=== PATIENT | male | born 1940 | race Caucasian/White ===

== ENCOUNTER → 2018-05-26 10:55 | Outpatient (CLI) | payer MEDICARE, BC, SELFPAY ==
[2018-05-26 11:12] LABS: Add Manual Diff / Slide Review NO; Basophils Percent Auto 0.3 % (0-2); Eosinophils Percent Auto 2.1 % (2-4); Hematocrit 40.4 % (41-53); Hemoglobin 13.6 g/dL (13.5-17.5); Lymphocytes Percent Auto 23.3 % (25-40); Mean Corpuscular HGB Conc 33.7 % (30-36); Mean Corpuscular Hemoglobin 30.9 PG (26-34); Mean Corpuscular Volume 91.8 fL (80-100); Neutrophils Absolute Auto 3400 /uL (3000-5900); Neutrophils Percent Auto 66.3 % (50-75); Platelet Count 228 X10^3/uL (150-400); Red Cell Distribution Width 14.1 % (11.6-14.8); White Blood Cell Count 5.2 X10^3/uL (4.5-11.0)
[2018-05-26 11:47] LABS: Alanine Aminotransferase 29 IU/L (21-72); Albumin 4.1 g/dL (3.5-5.0); Albumin Globulin Ratio 1.4 (1.0-2.8); Alkaline Phosphatase 93 U/L (38-126); Aspartate Aminotransferase 31 IU/L (17-59); BUN Creatinine Ratio 17.8 (6-22); Bilirubin Total 0.5 mg/dL (0.2-1.3); Blood Urea Nitrogen 16 mg/dL (9-20); Calcium 9.2 mg/dL (8.4-10.2); Carbon Dioxide 29 mmol/L (22-32); Chloride 104 mmol/L (98-107); Cholesterol 188 mg/dL (140-199); Estimated Glomerular Filt Rate > 60.0 mL/min (>60); Glucose 91 mg/dL (80-110); HDL Cholesterol 63 mg/dL (40-60); HEMOLYSIS < 15 (0-50); LDL Cholesterol Calculated 107 mg/dL (<100); Potassium 4.7 mmol/L (3.4-5.1); Sodium 139 mmol/L (137-145); Total Protein 7.1 g/dL (6.3-8.2); Triglycerides 88 mg/dL (35-150)
[2018-05-26 12:16] LABS: Prostate Specific Antigen Scrn 0.824 ng/mL (0.1-4.0)
[2018-05-26 12:26] LABS: TSH w/ Reflex to FT4 1.93 uIU/mL (0.47-4.68)
== END ==
PROVIDERS: PCP Family Medicine; Visit Provider Family Medicine
DX: E78.5 Hyperlipidemia, unspecified (principal)
CPT/HCPCS: 36415; 80053; 80061; 84443; 85025; G0103

== ENCOUNTER → 2018-10-06 14:13 | Outpatient (CLI) | payer MEDICARE, BC, SELFPAY ==
--- NOTE | 2018-10-06 14:16 | DI.RAD.S_ITS ---
PROCEDURE: XR FOOT LT MIN 3V INDICATIONS: heal pain TECHNIQUE: 3 views of the foot were acquired. COMPARISON: None. FINDINGS: Bones: No fractures or dislocations. No suspicious bony lesions. Plantar calcaneal spurring. Chronic appearing corticated ossicle at the tip of lateral malleolus. Moderate first MTP joint degeneration. Soft tissues: No tibiotalar joint effusion. Achilles tendon appears normal. IMPRESSION: Plantar calcaneal spurring. Moderate first MTP joint degeneration. Chronic appearing ossicle at the tip of the lateral malleolus. This could be further assessed with dedicated ankle radiographs as clinically required. Dictated by: Leonard Condon M.D. on 10/06/2018 at 15:48 Approved by: Leonard Condon M.D. on 10/06/2018 at 15:51
== END ==
PROVIDERS: PCP Family Medicine; Visit Provider Family Medicine
DX: M79.672 Pain in left foot (principal); M77.32 Calcaneal spur, left foot; M19.072 Primary osteoarthritis, left ankle and foot
CPT/HCPCS: 73630

== ENCOUNTER → 2019-12-01 10:30 | Outpatient (CLI) | payer MEDICARE, BC, SELFPAY ==
[2019-12-01 11:44] LABS: Add Manual Diff / Slide Review NO; Basophils Absolute Auto 0 /uL (0-100); Basophils Percent Auto 0.2 % (0-2); Eosinophils Absolute Auto 400 /uL (0-450); Eosinophils Percent Auto 7.2 % (2-4); Hematocrit 42.2 % (41-53); Hemoglobin 14.4 g/dL (13.5-17.5); Lymphocytes Absolute Auto 1300 /uL (1100-4500); Lymphocytes Percent Auto 22.4 % (25-40); Mean Corpuscular Hemoglobin 31.6 PG (26-34); Mean Corpuscular Volume 92.8 fL (80-100); Monocytes Absolute Auto 400 /uL (0-900); Monocytes Percent Auto 7.2 % (3-14); Neutrophils Absolute Auto 3500 /uL (1500-7000); Platelet Count 252 X10^3/uL (150-400); Red Blood Cell Count 4.55 X10^6/uL (4.5-5.9); Red Cell Distribution Width 13.9 % (11.6-14.8); White Blood Cell Count 5.6 X10^3/uL (4.5-11.0)
[2019-12-01 12:33] LABS: Alanine Aminotransferase 22 IU/L (<50); Albumin 4.5 g/dL (3.5-5.0); Albumin Globulin Ratio 1.4 (1.0-2.8); Alkaline Phosphatase 106 U/L (38-126); Aspartate Aminotransferase 31 IU/L (17-59); BUN Creatinine Ratio 21.1 (6-22); Bilirubin Total 0.6 mg/dL (0.2-1.3); Blood Urea Nitrogen 19 mg/dL (9-20); Calcium 9.5 mg/dL (8.4-10.2); Carbon Dioxide 26 mmol/L (22-32); Chloride 102 mmol/L (98-107); Cholesterol 214 mg/dL (140-199); Estimated Glomerular Filt Rate > 60.0 mL/min (>60); Globulin 3.3 g/dL (1.7-4.1); Glucose 84 mg/dL (80-110); HDL Cholesterol 72 mg/dL (40-60); HEMOLYSIS 19 (0-50); LDL Cholesterol Calculated 123 mg/dL (<100); Potassium 4.8 mmol/L (3.4-5.1); Sodium 138 mmol/L (137-145); Total Protein 7.8 g/dL (6.3-8.2); Triglycerides 94 mg/dL (35-150)
[2019-12-01 13:03] LABS: Prostate Specific Antigen Scrn 0.914 ng/mL (0.1-4.0)
== END ==
PROVIDERS: Family Provider Family Medicine; PCP Family Medicine; Referring Provider Family Medicine; Visit Provider Family Medicine
DX: E78.5 Hyperlipidemia, unspecified (principal); F42.9 Obsessive-compulsive disorder, unspecified; N40.1 Benign prostatic hyperplasia with lower urinary tract symptoms; E78.9 Disorder of lipoprotein metabolism, unspecified
CPT/HCPCS: 80053; 80061; 84153; 85025; G0103

== ENCOUNTER → 2021-12-11 11:08 | Outpatient (CLI) | payer MEDICARE, BC, SELFPAY ==
[2021-12-11 12:04] LABS: Add Manual Diff / Slide Review NO; Basophils Absolute Auto 0 /uL (0-100); Basophils Percent Auto 0.3 % (0-2); Eosinophils Absolute Auto 300 /uL (0-450); Eosinophils Percent Auto 5.9 % (2-4); Hematocrit 39.7 % (41-53); Hemoglobin 13.4 g/dL (13.5-17.5); Lymphocytes Absolute Auto 1300 /uL (1100-4500); Mean Corpuscular HGB Conc 33.7 % (30-36); Mean Corpuscular Hemoglobin 30.8 PG (26-34); Mean Corpuscular Volume 91.5 fL (80-100); Monocytes Absolute Auto 500 /uL (0-900); Monocytes Percent Auto 8.5 % (3-14); Neutrophils Absolute Auto 3600 /uL (1500-7000); Neutrophils Percent Auto 62.3 % (50-75); Platelet Count 236 X10^3/uL (150-400); Red Blood Cell Count 4.34 X10^6/uL (4.5-5.9); Red Cell Distribution Width 13.9 % (11.6-14.8); White Blood Cell Count 5.8 X10^3/uL (4.5-11.0)
[2021-12-11 13:40] LABS: Alanine Aminotransferase 22 IU/L (<50); Albumin 4.2 g/dL (3.5-5.0); Albumin Globulin Ratio 1.2 (1.0-2.8); Alkaline Phosphatase 93 U/L (38-126); Aspartate Aminotransferase 31 IU/L (17-59); BUN Creatinine Ratio 13.1 (6-22); Bilirubin Total 0.5 mg/dL (0.2-1.3); Blood Urea Nitrogen 13 mg/dL (9-20); Calcium 9.4 mg/dL (8.4-10.2); Carbon Dioxide 30 mmol/L (22-32); Chloride 104 mmol/L (98-107); Cholesterol 191 mg/dL (140-199); Estimated Glomerular Filt Rate > 60.0 mL/min (>60); Globulin 3.4 g/dL (1.7-4.1); Glucose 90 mg/dL (80-110); HDL Cholesterol 73 mg/dL (40-60); HEMOLYSIS < 15 (0-50); LDL Cholesterol Calculated 100 mg/dL (<100); Potassium 4.7 mmol/L (3.4-5.1); Sodium 137 mmol/L (137-145); Total Protein 7.6 g/dL (6.3-8.2); Triglycerides 92 mg/dL (35-150)
[2021-12-11 14:06] LABS: TSH w/ Reflex to FT4 2.02 uIU/mL (0.47-4.68)
[2021-12-11 14:07] LABS: Prostate Specific Antigen Scrn 0.911 ng/mL (0.1-4.0)
== END ==
PROVIDERS: Family Provider Family Medicine; PCP Family Medicine; Referring Provider Family Medicine; Visit Provider Family Medicine
DX: E78.5 Hyperlipidemia, unspecified (principal); Z12.5 Encounter for screening for malignant neoplasm of prostate; F42.9 Obsessive-compulsive disorder, unspecified; N40.1 Benign prostatic hyperplasia with lower urinary tract symptoms
CPT/HCPCS: 36415; 80053; 80061; 84443; 85025; G0103

== ENCOUNTER → 2022-06-27 10:38 | Outpatient (CLI) | payer MEDICARE, BC, SELFPAY ==
--- NOTE | 2022-06-27 10:41 | DI.RAD.S_ITS ---
PROCEDURE: XR CHEST 2V INDICATIONS: Dyspnea on exertion; chest pain TECHNIQUE: 2 views of the chest were acquired. COMPARISON: None. FINDINGS: Surgical changes and devices: None. Lungs and pleura: Chronic emphysematous changes are noted. No focal infiltrate. No pleural effusions or pneumothorax. Mediastinum: Mediastinal contours are normal. Heart size is normal. Bones and chest wall: Old fractures involving left posterior lateral 4th through 7th ribs are seen. No suspicious bony abnormalities. Soft tissues appear unremarkable. IMPRESSION: COPD. No acute cardiopulmonary pathology. Old healed left posterior lateral rib fractures as above. Dictated by: Endy Hinton M.D. on 06/27/2022 at 12:35 Approved by: Endy Hinton M.D. on 06/27/2022 at 12:38
[2022-06-27 12:44] LABS: Add Manual Diff / Slide Review NO; Basophils Absolute Auto 0 /uL (0-100); Basophils Percent Auto 0.3 % (0-2); Eosinophils Absolute Auto 200 /uL (0-450); Eosinophils Percent Auto 3.3 % (2-4); Hematocrit 38.1 % (41-53); Hemoglobin 12.9 g/dL (13.5-17.5); Lymphocytes Absolute Auto 1400 /uL (1100-4500); Lymphocytes Percent Auto 24.4 % (25-40); Mean Corpuscular HGB Conc 33.8 % (30-36); Mean Corpuscular Hemoglobin 31.1 PG (26-34); Mean Corpuscular Volume 92.1 fL (80-100); Monocytes Absolute Auto 500 /uL (0-900); Monocytes Percent Auto 8.3 % (3-14); Neutrophils Absolute Auto 3600 /uL (1500-7000); Neutrophils Percent Auto 63.7 % (50-75); Platelet Count 215 X10^3/uL (150-400); Red Blood Cell Count 4.14 X10^6/uL (4.5-5.9); Red Cell Distribution Width 14.1 % (11.6-14.8); White Blood Cell Count 5.7 X10^3/uL (4.5-11.0)
[2022-06-27 13:32] LABS: HEMOLYSIS < 15 (0-50); Iron 84 ug/dL (49-181)
[2022-06-27 13:36] LABS: Alanine Aminotransferase 19 IU/L (<50); Albumin 3.8 g/dL (3.5-5.0); Albumin Globulin Ratio 1.2 (1.0-2.8); Alkaline Phosphatase 97 U/L (38-126); Aspartate Aminotransferase 27 IU/L (17-59); BUN Creatinine Ratio 20.4 (6-22); Bilirubin Total 0.4 mg/dL (0.2-1.3); Blood Urea Nitrogen 19 mg/dL (9-20); Calcium 8.8 mg/dL (8.4-10.2); Carbon Dioxide 28 mmol/L (22-32); Chloride 104 mmol/L (98-107); Estimated Glomerular Filt Rate > 60 mL/min (>60); Globulin 3.1 g/dL (1.7-4.1); Glucose 74 mg/dL (80-110); HEMOLYSIS < 15 (0-50); Sodium 137 mmol/L (137-145); Total Protein 6.9 g/dL (6.3-8.2)
[2022-06-27 13:44] LABS: Percent Iron Saturation 37 % (20-50); Total Iron Binding Capacity 229 ug/dL (261-462); Transferrin 175 mg/dL (206-381)
[2022-06-27 14:09] LABS: Ferritin 77 ng/mL (18-464)
== END ==
PROVIDERS: Family Provider Family Medicine; PCP Family Medicine; Referring Provider Physician Assistant; Visit Provider Physician Assistant
DX: R07.9 Chest pain, unspecified (principal); R06.09 Other forms of dyspnea; J44.9 Chronic obstructive pulmonary disease, unspecified; D64.9 Anemia, unspecified
CPT/HCPCS: 36415; 71046; 80053; 82728; 83540; 83550; 85025; 93005

== ENCOUNTER 2023-02-27 08:30 | Outpatient (RCR) | payer MEDICARE, BC, SELFPAY | END 2023-02-27 10:30 | LOC: CAR 08:30 | PROVIDERS: Family Provider Family Medicine; PCP Family Medicine; Referring Provider Surgery; Visit Provider Surgery | DX: Z95.1 Presence of aortocoronary bypass graft (principal) | CPT/HCPCS: 93798 ==

== ENCOUNTER 2023-05-30 08:30 | Outpatient (RCR) | payer MEDICARE, BC, SELFPAY | END 2023-05-30 10:30 | LOC: PUL 08:30 | PROVIDERS: Family Provider Family Medicine; PCP Family Medicine; Referring Provider Internal Medicine; Visit Provider Internal Medicine | DX: J84.115 Respiratory bronchiolitis interstitial lung disease (principal) | CPT/HCPCS: G0237; G0238 ==

== ENCOUNTER → 2023-09-03 08:32 | Outpatient (CLI) | payer MEDICARE, BC, SELFPAY ==
[2023-09-03 11:00] LABS: Add Manual Diff / Slide Review NO; Basophils Absolute Auto 0 /uL (0-100); Basophils Percent Auto 0.1 % (0-2); Eosinophils Absolute Auto 0 /uL (0-450); Eosinophils Percent Auto 0.3 % (2-4); Hematocrit 38.2 % (41-53); Lymphocytes Absolute Auto 700 /uL (1100-4500); Lymphocytes Percent Auto 12.3 % (25-40); Mean Corpuscular HGB Conc 34.1 % (30-36); Mean Corpuscular Hemoglobin 31.2 PG (26-34); Mean Corpuscular Volume 91.3 fL (80-100); Monocytes Absolute Auto 500 /uL (0-900); Monocytes Percent Auto 8.6 % (3-14); Neutrophils Absolute Auto 4800 /uL (1500-7000); Neutrophils Percent Auto 78.7 % (50-75); Platelet Count 181 X10^3/uL (150-400); Red Blood Cell Count 4.19 X10^6/uL (4.5-5.9); Red Cell Distribution Width 13.8 % (11.6-14.8); White Blood Cell Count 6.1 X10^3/uL (4.5-11.0)
[2023-09-03 11:16] LABS: Alanine Aminotransferase 58 IU/L (<50); Albumin 4.1 g/dL (3.5-5.0); Albumin Globulin Ratio 1.5 (1.0-2.8); Alkaline Phosphatase 105 U/L (38-126); Aspartate Aminotransferase 55 IU/L (17-59); BUN Creatinine Ratio 18.6 (6-22); Bilirubin Total 0.7 mg/dL (0.2-1.3); Blood Urea Nitrogen 18 mg/dL (9-20); Calcium 9.8 mg/dL (8.4-10.2); Carbon Dioxide 28 mmol/L (22-32); Chloride 101 mmol/L (98-107); Cholesterol 147 mg/dL (140-199); Estimated Glomerular Filt Rate > 60 mL/min (>60); Globulin 2.7 g/dL (1.7-4.1); Glucose 95 mg/dL (80-110); HDL Cholesterol 101 mg/dL (40-60); HEMOLYSIS < 15 (0-50); LDL Cholesterol Calculated 35 mg/dL (<100); Potassium 4.5 mmol/L (3.4-5.1); Sodium 136 mmol/L (137-145); Total Protein 6.8 g/dL (6.3-8.2); Triglycerides 56 mg/dL (35-150)
[2023-09-03 11:36] LABS: TSH w/ Reflex to FT4 1.55 uIU/mL (0.47-4.68)
== END ==
PROVIDERS: Family Provider Family Medicine; PCP Family Medicine; Referring Provider Family Medicine; Visit Provider Family Medicine
DX: D64.9 Anemia, unspecified (principal); E78.5 Hyperlipidemia, unspecified; I48.0 Paroxysmal atrial fibrillation
CPT/HCPCS: 36415; 80053; 80061; 84443; 85025

== ENCOUNTER → 2024-01-29 13:59 | Outpatient (CLI) | payer MEDICARE, BC, SELFPAY ==
--- NOTE | 2024-01-29 14:02 | DI.RAD.S_ITS ---
PROCEDURE: XR LUMBAR SPINE MIN 4V INDICATIONS: Fell about 2 weeks ago; low back pain TECHNIQUE: 5 views of the lumbar spine were acquired, including bilateral oblique views. COMPARISON: None. FINDINGS: Bones: 5 nonrib-bearing vertebrae are present. There is normal bony alignment. Wedge-shaped L2 compression fracture. Hypertrophic facet joints noted in the lower lumbar spine No suspicious bony lesions. Convex right thoracolumbar scoliosis present. Soft tissues: Overlying bowel gas pattern is normal. No suspicious soft tissue calcifications. Oblique images: No pars defects. IMPRESSION: L2 compression fracture, uncertain age. Given recent history of trauma, consider follow-up MRI for evaluation of vertebroplasty Approved by: Joselo Manzano M.D. on 01/29/2024 at 19:43
== END ==
PROVIDERS: Family Provider Family Medicine; PCP Family Medicine; Referring Provider Physician Assistant; Visit Provider Physician Assistant
DX: M54.50 Low back pain, unspecified (principal); S32.028A Other fracture of second lumbar vertebra, initial encounter for closed fracture; W19.XXXA Unspecified fall, initial encounter
CPT/HCPCS: 72110

== ENCOUNTER → 2024-02-18 12:21 | Outpatient (CLI) | payer MEDICARE, BC, SELFPAY ==
--- NOTE | 2024-02-18 12:23 | DI.RAD.S_ITS ---
PROCEDURE: XR DEXA AXIAL SKELETON INDICATIONS: compression fracture COMPARISON: None. FINDINGS: Lumbar Spine: L1, L2, L4. Bone mineral density 0.973 g/cm2, T score -0.6. Left Hip: Bone mineral density 0.798 g/cm2, T score -1.2. Left Femoral Neck: Bone mineral density 0.656 g/cm2, T score -1.7. Right Hip: Bone mineral density 0.806 g/cm2, T score -1.1. Right Femoral Neck: Bone mineral density 0.651 g/cm2, T score -1.8. Fracture Risk Calculation (when applicable): Not provided due to prior hip or vertebral body fracture. (T score greater or equal to -1.0 to: NORMAL) (T score from -1.1 to -2.4: OSTEOPENIA) (T score less than or equal to -2.5: OSTEOPOROSIS) IMPRESSION: 1. Osteopenia Dictated by: Vaughn Douglas M.D. on 02/18/2024 at 20:31 Approved by: Vaughn Douglas M.D. on 02/18/2024 at 20:32
== END ==
PROVIDERS: Family Provider Family Medicine; PCP Family Medicine; Referring Provider Family Medicine; Visit Provider Family Medicine
DX: S32.000A Wedge compression fracture of unspecified lumbar vertebra, initial encounter for closed fracture (principal); M85.89 Other specified disorders of bone density and structure, multiple sites
CPT/HCPCS: 77080

== ENCOUNTER → 2024-07-08 16:12 | Outpatient (CLI) | payer MEDICARE, BC, SELFPAY ==
--- NOTE | 2024-07-08 16:13 | DI.MRI.S_ITS ---
PROCEDURE: MR LUMBAR SPINE WO CON INDICATIONS: B sciatica pain TECHNIQUE: Noncontrast sagittal T1 spin echo and T2 fast echo, sagittal STIR, and T2 fast spin echo through the lumbar spine. In cases with scoliosis, additional coronal T2 fast spin echo may be performed. COMPARISON: CR, XR LUMBAR SPINE MIN 4V, 01/29/2024, 14:02. FINDINGS: Image quality: Excellent. Alignment and Curvature: There is normal bony alignment. Bone Marrow: Marrow is of normal overall signal. Approximate 58% compression deformity of the superior endplate of L2 with increased T2 signal. It is noted that compression deformity L2 appears slightly more prominent when compared to 01/29/2024. No retropulsion. In addition, increased signal at the superior endplate of T11 with approximate 25% compression deformity is present. Spinal Cord: Conus medullaris terminates at the L1 level. Visualized cord demonstrates normal signal and size. Paraspinous Soft Tissues: No paravertebral masses. Discs: Multilevel moderate disc desiccation. There is increased T2 signal through the foramina at T10. This is only visualized on sagittal view given field of view on axial images. T12-L1: Minimal disc bulge without spinal stenosis or gross foraminal narrowing. L1-L2: Mild disc bulge without spinal stenosis or foraminal narrowing. Facet and ligamentum flavum hypertrophy are present. L2-L3: Mild disc bulge without spinal stenosis. Minimal left foraminal narrowing. Mild facet hypertrophy. L3-L4: Mild disc bulge without spinal stenosis. Mild left foraminal narrowing with facet and ligamentum flavum hypertrophy. L4-L5: Mild disc bulge with severe spinal stenosis and canal compression. No foraminal narrowing. Prominent facet and ligamentum flavum hypertrophy. L5-S1: Mild disc bulge with minimal spinal stenosis. Mild left foraminal narrowing with facet and ligamentum flavum hypertrophy. IMPRESSION: T2 compression deformity appearing slightly more prominent when compared to prior exam with signal changes suggestive acute/subacute on chronic fracture. Mild increased signal with endplate deformity at T11 suggestive of subacute injury. Severe spinal stenosis with canal compression at L4-5 secondary to facet/ligamentum flavum arthropathy. Limited visualization of increased T2 signal within the foramina at the level of T10 possibly schwannoma or nerve root sleeve cyst. Dictated by: Ana Rosa Hernadez M.D. on 07/09/2024 at 11:48 Approved by: Ana Rosa Hernadez M.D. on 07/09/2024 at 11:55
== END ==
PROVIDERS: Family Provider Family Medicine; PCP Family Medicine; Referring Provider Family Medicine; Visit Provider Family Medicine
DX: M54.41 Lumbago with sciatica, right side (principal); M47.816 Spondylosis without myelopathy or radiculopathy, lumbar region; M48.061 Spinal stenosis, lumbar region without neurogenic claudication; M43.8X4 Other specified deforming dorsopathies, thoracic region; S32.000A Wedge compression fracture of unspecified lumbar vertebra, initial encounter for closed fracture; G25.81 Restless legs syndrome
CPT/HCPCS: 72148

== ENCOUNTER → 2024-09-15 14:10 | Outpatient (CLI) | payer MEDICARE, BC, SELFPAY ==
--- NOTE | 2024-09-15 14:12 | DI.US.S_ITS ---
PROCEDURE: US PERIPH VENOUS LOW EXTREM RT INDICATIONS: RLE edema TECHNIQUE: Real-time imaging, as well as color and pulse Doppler interrogation, were performed of the lower extremity deep veins from the inguinal ligament to the popliteal fossa, with documentation of the visualized calf veins. COMPARISON: None. FINDINGS: The common femoral, femoral, popliteal, and the visualized calf veins are normally compressible, and free of intraluminal thrombus. Color and pulse Doppler demonstrate normal phasic intraluminal flow. There is normal augmentation response to distal compression maneuver. IMPRESSION: No findings of lower extremity deep venous thrombosis. Dictated by: Vaughn Douglas M.D. on 09/15/2024 at 18:58 Approved by: Vaughn Douglas M.D. on 09/15/2024 at 19:00
== END ==
PROVIDERS: Family Provider Family Medicine; PCP Family Medicine; Referring Provider Family Medicine; Visit Provider Family Medicine
DX: M79.606 Pain in leg, unspecified (principal); M79.89 Other specified soft tissue disorders
CPT/HCPCS: 93971

== ENCOUNTER 2025-05-28 11:49 | Day surgery (SDC) | payer MEDICARE, BC, SELFPAY ==
[2025-05-25 09:21] VITALS: BMI 20.5
[2025-05-28] VITALS (12 sets, daily range): BP systolic 116–163; BP diastolic 58–80; PULSE 53–77; RESP 16–26; TEMP 36.1–37; O2SAT 92–100; BMI 20.5; BMI 20.7
[2025-05-28] MEDS: LACTATED RINGERS 1,000 ML 42 ML IV (12:37)
[2025-05-28] MEDS: ACETAMINOPHEN 325 MG TABLET 975 MG PO (12:37)
--- NOTE | 2025-05-28 13:33 | PM.PREOP ---
Pre-operative Note Interval Note History & Physical reviewed/Exam performed by Physician: Yes Changes to H&P: No ASA Class (for procedural sedation): III
[2025-05-28] MEDS: CEFAZOLIN 2 GM/100 ML PREMIX 100 ML IV (13:57)
--- NOTE | 2025-05-28 14:09 | SUR.OPER ---
Supine on padded OR bed, head on pillow, arms secured on padded arm boards at <90 degrees abduction, legs uncrossed, safety belt at thigh.
[2025-05-28] MEDS: BUPIVACAINE 0.25% W/ EPI 30 ML VIAL 60 ML INJ (14:16)
--- NOTE | 2025-05-28 14:43 | P.OP_ITS ---
Operative Date/Time/Diagnoses Date of procedure: 05/28/25 Time of procedure: 14:43 Pre-op diagnosis: RIH Post-op diagnosis: same Procedure & Clinicians Procedure: Open RIHR with mesh, Lichenstein technique Same procedure(s) as scheduled: Yes Indications: 84yo M, symptomatic RIH Surgeon: Jermaine Pettit Medical Review Coordinator: Scott Dotson Anesthesia Type: MAC +/- Operative Notes Findings: Indirect inguinal hernia sac, large lipoma of the cord; direct floor strong Closure Type: primary Specimen(s): none sent Prosthetic devices, grafts, tissues, transplants, or devices: mesh, 2x4 marlex customized Applied: other (mesh) Estimated Blood Loss (mL): 5 Blood products transfused: none Procedure in detail: After informed consent, the patient was taken to the operating room and placed in the supine position with pressure points well padded. After satisfactory sedation, the right inguinal region was shaved, prepped and draped in the usual sterile manner. Surgical time-out was performed with all team members in agreement. The correct side, the right side, was marked in the preoperative holding area with the patient in agreement. We used a total of 60 cc of 0.25% Marcaine with epinephrine. The skin and subcutaneous tissues were injected with the local anesthetic and a linear incision was made with a #15 blade knife continuing from the suprapubic area to inferomedial to the anterior superior iliac spine. We continued this dissection with cautery through the Kevan's fascia until we reached the external abdominal oblique. A #15 blade knife was used to make a small incision in the external abdominal oblique and the edges were grasped with hemostats and this incision was continued through the external inguinal ring taking great care to avoid injury to the ilioinguinal nerve which was identified and preserved. [place] was used for retraction. The surgical field was oozing typical of antiplatelet agents. Hemostasis was achieved with cautery. We mobilized the cord off the pubic bone medially and encircled it with a Sahra drain. The cord structures were skeletonized by opening the cremasteric muscle fibers. We encountered a large cord lipoma which was mobilized proximally to the internal inguinal ring. An indirect inguinal hernia sac was similarly identified and mobilized proximally to the internal inguinal ring. Both structures were controlled using a 2-0 silk suture ligature at the base and excised. The indirect inguinal sac was twisted to ensure there was no intraperitoneal contents prior to suture ligature. The direct floor was noted to be strong and intact. I fashioned a 2 x 4 inch piece of Marlex mesh with curved Chaves scissors. This was secured to the pubic bone medially to the shelving edge of the ilioinguinal ligament and the iliopubic tract laterally and to the conjoined tendon medially taking great care to avoid injury to the nerves. The mesh was split and the tails were secured together with suture laterally. Rather than running 3-0 Prolene in the traditional manner, I elected to place interrupted 3-0 Vicryl suture to reduce the chance for chronic pain since he had such a strong direct floor. With this, the mesh was noted to lay flat with no wrinkling of the mesh. The [place] was removed and the inguinal cord was returned to the canal. The external abdominal oblique aponeurosis was closed over this with 3-0 Vicryl running taking care to avoid injury to the nerve. Kevan's fascia was closed using interrupted 3-0 Vicryl suture. The skin incision was closed using 4-0 Monocryl in a subcuticular manner. Dermabond glue was applied as a final dressing. The estimated blood loss was minimal. The instrument sponge and needle counts were all correct x2. The patient tolerated the procedure well and was transported to the recovery area in stable condition Complications: none Post-operative Condition: stable Disposition: PACU Plan for aftercare: PACU then home
--- NOTE | 2025-05-28 15:54 | SUR.PREOP ---
Pt voided into toilet after arriving to phase 2; unable to measure, however water in bowl was very yellow in color and pt verbalized a good amount of urine passed
--- NOTE | 2025-05-28 16:15 | SUR.PHASEII ---
Patient unable to stand when attempting to ambulate to bathroom. His right leg can bear no weight and is weak. He has decreased sensation throughout leg. RN notes patient got 60ml 0.25% Bupivacaine to the operative site. All other neurological symptoms normal in the rest of his body.He is AOx4. RN called Dr. Pettit to discuss. Patient and spouse not comfortable trying to go home without being able to stand and walk. Dr. Pettit admitting patient to acute care. Patient and spouse in agreement.
[2025-05-28] MEDS: ATORVASTATIN 20 MG TABLET 40 MG PO (21:47)
[2025-05-29 03:00] VITALS: BP 134/71; PULSE 73; RESP 20; TEMP 36.3; O2SAT 91
[2025-05-29 03:36] VITALS: O2SAT 93
[2025-05-29 07:35] VITALS: O2SAT 98
[2025-05-29 07:39] VITALS: BP 175/84; PULSE 77; RESP 16; TEMP 36.6; O2SAT 99
[2025-05-29 08:15] VITALS: BP 175/85; PULSE 77
[2025-05-29] MEDS: DOCUSATE 100 MG CAPSULE PO (08:15)
[2025-05-29] MEDS: METOPROLOL ER 25 MG TABLET PO (08:15)
[2025-05-29] MEDS: SERTRALINE 50 MG TABLET 100 MG PO (08:16)
[2025-05-29] MEDS: TAMSULOSIN 0.4 MG CAPSULE 0.8 MG PO (08:16)
[2025-05-29] MEDS: ASPIRIN 81 MG CHEW TAB PO (08:16)
--- NOTE | 2025-05-29 08:30 | CM.DANOTE ---
Initial DCP Assessment Note Pt is a 84 yo male, resident of [place], now POD#1 from hernia repair by general surgeon. PCP: Placido Maddox Payer: HELEN/DONA Esquivel Reviewed chart, pt lives independently with spouse and plans to return home w/sp to assist throughout recovery. DC order from surgeon has already been initiated this morning. No barriers identified at this time to patient's safe discharge home w/family to assist; close outpatient f/u recommended. Social work team will plan to follow clinical course closely in case any DC needs or concerns arise. SYLVAIN Escalera Discharge Planning/Care Management CM Discharge Assessment Start: 05/28/25 16:45 Freq: Status: Active Protocol: Document 05/29/25 08:23 DEANGELO (Rec: 05/29/25 08:29 DEANGELO [id number]) Discharge Planning Assessment Assigned Discharge SYLVAIN Mallory Study Assistant DPOA/Assigned Lillian Michelle, spouse Designee Name Contact Information [phone] Advance Directives? Yes Advance Directives Yes on File History Provided By Patient,Family Member,Medical Record Prior Living House Arrangements Household Members spouse Type of Drives own vehicle transporation used prior to admit Independent with ADL Yes 's Is patient alert and Yes oriented? Comment Independent Discharge Plan Home Transportation Spouse Arrangement Referrals Initiated None needed
--- NOTE | 2025-05-29 09:28 | P.PN_ITS ---
Subjective Subjective Date Patient Seen: 05/29/25 Time Patient Seen: 09:30 Interval history: Patient is seen postop day 1. For Dr. Pettit. Patient is doing well states he is ambulating urinating without any problems and desires to go home today. Patient was given normal postoperative instructions as per myself and Dr. Pettit on lifting stairs walking driving diet bathing exercise infectious changes wound care. All questions were answered to patient's satisfaction Vitals: Heart rate 77 respirations 16 BP is 175/84 SaO2 is 99% on room air Heart regular rate and rhythm without murmurs. Lungs are clear to auscultation diminished in the bases. No rales rhonchi or wheezes noted. Abdomen is soft nondistended right lower quadrant surgical incision is clear no signs of infection inflammation or ecchymosis. Impression: Postop day 1. Right inguinal hernia with mesh Plan: Patient may be discharged as per orders patient has follow-up with Dr. Pettit in the office at the appointed time a prescription has been sent in to the patient's pharmacy all questions were answered patient's satisfaction. Patient's discharge postop day 1. In satisfactory condition. Exam Vital Signs (past 8 hours): - 05/29/25 03:00 05/29/25 03:36 05/29/25 07:35 Temperature 97.4 F L Pulse Rate 73 Respiratory Rate 20 Blood Pressure 134/71 Pulse Oximetry 91 93 98 Oxygen Delivery Method Room Air Room Air Oxygen Flow Rate 0 0 05/29/25 07:39 05/29/25 08:15 Temperature 97.8 F Pulse Rate 77 77 Respiratory Rate 16 Blood Pressure 175/84 H 175/85 H Pulse Oximetry 99 Oxygen Delivery Method Oxygen Flow Rate 0 Oxygen Delivery Method Room Air Oxygen Flow Rate 0 [facility] Medical History (Updated 05/25/25 @ 13:07 by Alka Silver RN) Hemidiaphragm paralysis Pre-diabetes Presence of Watchman left atrial appendage closure device Anxiety Depression Elevated transaminase level Alkaline phosphatase elevation 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) History of unstable angina Pulmonary HTN Pneumothorax, closed, traumatic (~2003) HTN (hypertension) CAD (coronary artery disease) CHF (congestive heart failure) MDD (major depressive disorder), recurrent episode, moderate Hyperlipidemia Chicken pox Measles Mumps OCD (obsessive compulsive disorder) Surgical History (Updated 05/26/25 @ 14:09 by Alka Silver RN) Hx of bilateral cataract extraction History of cardiac radiofrequency ablation History of back surgery 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 Mother No problems noted. Social History marital status: household members: spouse Smoking Status: Former smoker alcohol intake: current substance use type: does not use Assessment & Plan Post-op Postoperative Procedures: Procedures Operation Date: 05/28/25 13:45 Actual Procedure Side Surgeon p Hernia Repair - Inguinal with mesh Right Jermaine Pettit MD Quality VTE Deep Vein Thrombosis/Pulmonary Embolism Present on Admission: No
== END 2025-05-29 11:03 | disposition home or self-care (01) ==
LOC: OR 13:42 → AC 16:25
PROVIDERS: PCP Family Medicine; Referring Provider Surgery; Visit Provider Surgery
PROC: (CPT 49505; principal; 2025-05-28 13:45)
DX: K40.90 Unilateral inguinal hernia, without obstruction or gangrene, not specified as recurrent (principal); D17.6 Benign lipomatous neoplasm of spermatic cord
CPT/HCPCS: 49505; C1781; J0690; J1100; J2405; J2704; J3010